=== PATIENT | female | born 1980 | race Caucasian/White ===

== ENCOUNTER 2020-09-05 21:22 | Emergency (ER) | payer BC ==
[~2020-09-05] VITALS: Ht 167.6 cm; Wt 108.9 kg
[2020-09-05] MEDS ORDERED: LEVOTHYROXINE88 MC1 PO (21:47)
[2020-09-05 22:22] LABS: ABSOLUTE BASOPHILS 0.2 thou/uL (0.0-0.2); ABSOLUTE EOSINOPHILS 0.2 thou/uL (0.0-0.7); ABSOLUTE MONOCYTES 0.9 thou/uL (0.0-1.2); ABSOLUTE NEUTROPHILS 10.9 thou/uL (1.6-8.1); BASOPHILS 1.1 %; EOSINOPHILS 1.2 %; HEMATOCRIT 43.4 % (37.0-47.0); HEMOGLOBIN 14.7 gm/dL (12.0-15.0); LYMPHOCYTES 32.9 %; MCH 24.7 pg (26.0-34.0); MCHC 33.8 g/dL (28.0-37.0); MCV 73.2 fL (80.0-100.0); MONOCYTES 5.2 %; MPV 7.9 fl. (7.2-11.1); NUCLEATED RBCS 0 /100WBC; PLATELET COUNT* 370 thou/uL (150-400); POLYS 59.6 %; RBC 5.93 mil/uL (4.20-5.00); RDW-CV 13.6 % (10.5-14.5); WBC 18.2 thou/uL (4.0-11.0)
[2020-09-05 22:38] LABS: CALCIUM 9.4 mg/dL (8.5-10.1); CREATININE 0.9 mg/dL (0.6-1.3); POTASSIUM 3.8 mmol/L (3.5-5.1)
[2020-09-05 22:43] LABS: ALBUMIN 3.9 g/dL (3.4-5.0); TOTAL BILIRUBIN 0.5 mg/dL (<0.1-1.0); TOTAL PROTEIN 7.9 g/dL (6.4-8.2)
[2020-09-05 22:43] LABS: URINE BILIRUBIN NEGATIVE (Negative); URINE BLOOD NEGATIVE (Negative); URINE CLARITY CLEAR; URINE COLOR YELLOW; URINE GLUCOSE-RANDOM NEGATIVE (Negative); URINE KETONES NEGATIVE (Negative); URINE LEUKOCYTES-REFLEX NEGATIVE (Negative); URINE NITRITE-REFLEX NEGATIVE (Negative); URINE PROTEIN NEGATIVE (Negative); URINE SPECIFIC GRAVITY <= 1.005 (1.005-1.030); URINE UROBILINOGEN 0.2 E.U./dl (0.2-1.0)
[2020-09-05 23:29] VITALS: BP 170/115
--- NOTE | 2020-09-06 15:13 | EKG ---
[place] [address] ELECTROCARDIOGRAM REPORT Name: ELIGIO OBREGON Room: [facility]#: [id number] Admission: 09/05/20 Attend Phys: Discharge: 09/05/20 Date of : 84 Date of Service: 09/05/202151 Report #: [id number] THIS REPORT FOR: //name// [facility] ED Test Date: 2020-09-05 Test Time: 21:52:22 Pat Name: ELIGIO OBREGON Department: Room: Gender: Bilingual Office Assistant: : 1980 Requested By: Venu Martinez Order Number: [id number] MD: Ishmael Badillo Measurements Intervals [place] Rate: 95 P: 45 DE: 168 QRS: 35 QRSD: 102 T: 21 QT: 364 QTc: 458 Interpretive Statements Sinus rhythm Probable left atrial enlargement RSR' in V1 or V2, right VCD or RVH No previous ECG available for comparison Electronically Signed On 09-06-2020 15:13:44 PINMAK[employer] by Ishmael Badillo [email or web address] <ELECTRONICALLY SIGNED> By: Ishmael Badillo MD, [facility] 09/06/20 1513 51 51 Ishmael Badillo MD, [facility] /EPI
== END 2020-09-05 23:29 | disposition home or self-care (01) ==
LOC: M.ERS 21:22
PROVIDERS: Family Medicine
DX: R07.81 Pleurodynia (principal); I10 Essential (primary) hypertension; Z98.890 Other specified postprocedural states; Z88.1 Allergy status to other antibiotic agents

== ENCOUNTER 2021-02-27 17:53 | Emergency (ER) | payer BC ==
[~2021-02-27] VITALS: Ht 167.6 cm; Wt 95.3 kg
[~2021-02-27 17:53] MED LIST: LEVOTHYROXINE88 MC1 PO
[2021-02-27] MEDS ORDERED: AMOXICILLIN250 MG PO (18:34)
[2021-02-27] MEDS ORDERED: CIPRO500 MG/5 M EA. EYE (18:35)
[2021-02-27] MEDS ORDERED: BACTRIM DS TAB1 EAC1 PO (18:35)
[2021-02-27] MEDS ORDERED: METFORMIN HCL500 M3 PO (18:35)
[2021-02-27 20:43] LABS: ABSOLUTE BASOPHILS 0.1 thou/uL (0.0-0.2); ABSOLUTE EOSINOPHILS 0.1 thou/uL (0.0-0.7); ABSOLUTE LYMPHOCYTES 4.6 thou/uL (0.8-5.3); ABSOLUTE MONOCYTES 0.7 thou/uL (0.0-1.2); ABSOLUTE NEUTROPHILS 8.3 thou/uL (1.6-8.1); BASOPHILS 0.7 %; HEMATOCRIT 39.1 % (37.0-47.0); HEMOGLOBIN 13.4 gm/dL (12.0-15.0); LYMPHOCYTES 33.3 %; MCH 25.1 pg (26.0-34.0); MCHC 34.1 g/dL (28.0-37.0); MCV 73.5 fL (80.0-100.0); MPV 7.5 fl. (7.2-11.1); NUCLEATED RBCS 0 /100WBC; PLATELET COUNT* 378 thou/uL (150-400); RBC 5.33 mil/uL (4.20-5.00); RDW-CV 14.1 % (10.5-14.5); WBC 13.8 thou/uL (4.0-11.0)
[2021-02-27 20:53] LABS: CALCIUM 8.9 mg/dL (8.5-10.1); CREATININE 0.9 mg/dL (0.6-1.3)
[2021-02-27 20:58] LABS: ALBUMIN 3.7 g/dL (3.4-5.0); TOTAL BILIRUBIN 0.3 mg/dL (<0.1-1.0); TOTAL PROTEIN 7.4 g/dL (6.4-8.2)
[2021-02-27 22:51] VITALS: BP 160/116
== END 2021-02-27 22:51 | disposition home or self-care (01) ==
LOC: M.ERS 17:53
PROVIDERS: Nurse Practitioner Family
DX: H00.034 Abscess of left upper eyelid (principal); H10.9 Unspecified conjunctivitis; H00.031 Abscess of right upper eyelid; I10 Essential (primary) hypertension; Z98.890 Other specified postprocedural states; Z88.1 Allergy status to other antibiotic agents